=== PATIENT | male | born 1950 | race Caucasian/White ===

== ENCOUNTER 2020-01-11 07:01 | Inpatient (IN) | payer MEDICARE ==
[~2020-01-11] VITALS: Ht 162.6 cm; Wt 72.2 kg
[~2020-01-11 07:01] MED LIST: AMOX-367 PO; HYDR200T5 PO; INSU100V8 SQ; LABE100T6 PO; LISI40TA PO; LOVA20TA2 PO
[2020-01-11] MEDS ORDERED: DEXTROSE 50%, 50ML SYRINGE ONE (07:05)
[2020-01-11] MEDS ORDERED: SODIUM CHLORIDE 0.9% 1,000 ML IV ONE (07:15)
[2020-01-11] MEDS ORDERED: DEXTROSE 50%, 50ML SYRINGE IVPush ONE (07:30)
--- NOTE | 2020-01-11 07:35 | NUR ---
LATE NOTE: 2ND IV PLACED, LABS DRAWN WITH START/SENT TO LAB. FS GLUCOSE 154, CONTINUED Q15 MINUTES. DTR AT BS, CALL LIGHT WITHIN REACH.
[2020-01-11 07:45] LABS: BASOPHILS # (AUTO) 0.04 x10^3/uL (0-0.1); BASOPHILS % (AUTO) 0 % (0-1); EOSINOPHILS # (AUTO) 0.11 x10^3/uL (0-0.4); EOSINOPHILS % (AUTO) 1 % (1-7); LYMPHOCYTES # (AUTO) 1.23 x10^3/uL (1-3.4); LYMPHOCYTES % (AUTO) 13 % (22-44); MD NO; MEAN CORPUSCULAR HEMOGLOBIN 31.4 pg (27.5-34.5); MEAN CORPUSCULAR HGB CONC 32.5 g/dL (33.2-36.2); MEAN PLATELET VOLUME 8.1 fL (7.4-10.4); MONOCYTES # (AUTO) 0.46 x10^3/uL (0.2-0.8); MONOCYTES % (AUTO) 5 % (2-9); NEUTROPHILS # (AUTO) 7.48 x10^3/uL (1.8-6.8); NEUTROPHILS % (AUTO) 80 % (42-75); PLATELET COUNT 255 x10^3/uL (130-400); RED CELL DISTRIBUTION WIDTH 14.5 % (9.4-14.8)
[2020-01-11 07:58] LABS: ALANINE AMINOTRANSFERASE 37 U/L (12-78); ALBUMIN 3.8 g/dL (3.4-5.0); ANION GAP 6 mmol/L (5-15); CALCIUM 8.5 mg/dL (8.5-10.1); CHLORIDE 111 mmol/L (98-107)
[2020-01-11 08:01] LABS: ALKALINE PHOSPHATASE 88 U/L (45-117); BILIRUBIN,TOTAL 0.2 mg/dL (0.2-1.0); CREATININE 1.84 mg/dL (0.7-1.3); TOTAL PROTEIN 7.3 g/dL (6.4-8.2)
--- NOTE | 2020-01-11 08:28 | NUR ---
PER PT AND DTR, PT BACK TO "NORMAL" MENTAL STATUS. A/O X 4. PT STATES HE NOTICES BLOOD SUGAR SEEMS LOW EVERY MORNING AND EATS A FEW POPSICLES TO BRING IT UP. ERP NOTIFIED. MEDS ENTERED INTO MED REC.
--- NOTE | 2020-01-11 09:14 | NUR ---
FS 106, BREAKFAST TRAY PROVIDED. ALL QUESTIONS ANSWERED FROM PT AND . VSS/UPDATED IN COMPUTER.
[2020-01-11 11:26] VITALS: BP 195/71
[2020-01-11 12:00] VITALS: BP 184/72
[2020-01-11] MEDS ORDERED: METOCLOPRAMIDE 5 MG/ML, 2ML IVPush PRN (12:30)
[2020-01-11] MEDS ORDERED: DEXTROSE 4 GM TAB.CHEW PO PRN (12:30)
[2020-01-11] MEDS ORDERED: DOCUSATE 100 MG CAPSULE PO PRN (12:30)
[2020-01-11] MEDS ORDERED: BISACODYL 10 MG SUPP PR PRN (12:30)
[2020-01-11] MEDS ORDERED: ONDANSETRON 2MG/ML, 2ML IVPush PRN (12:30)
[2020-01-11] MEDS ORDERED: ACETAMINOPHEN 325 MG TABLET PO PRN (12:30)
[2020-01-11] MEDS ORDERED: ONDANSETRON ODT 4 MG PO PRN (12:30)
[2020-01-11] MEDS ORDERED: MELATONIN 5 MG TABLET PO PRN (12:30)
[2020-01-11] MEDS ORDERED: GLUCAGON 1 MG IM PRN (12:30)
[2020-01-11] MEDS ORDERED: DEXTROSE 50%, 50ML SYRINGE IVPush PRN (12:30)
[2020-01-11 12:37] VITALS: BP 184/72
[2020-01-11] MEDS ORDERED: LISINOPRIL 40 MG TABLET PO SCH (13:04)
[2020-01-11] MEDS ORDERED: LABETALOL 300 MG TABLET PO SCH (13:04)
[2020-01-11] MEDS ORDERED: LABETALOL 100 MG TABLET ONE (13:08)
[2020-01-11] MEDS ORDERED: ALBUMIN HUMAN 25% 100 ML IV ONE (13:30)
[2020-01-11] MEDS: AMLODIPINE 5 MG TABLET PO SCH ×2 (13:35→20:57)
[2020-01-11 14:17] LABS: TROPONIN I < 0.015 ng/mL (0.000-0.045)
[2020-01-11] MEDS: SODIUM CHLORIDE 0.9% 1,000 ML IV SCH (15:14)
[2020-01-11 15:55] LABS: MICROSCOPIC AUTO
[2020-01-11] MEDS ORDERED: INSULIN LISPRO 100 UNITS/ML, PEN SQ-INSULIN SCH (16:00)
[2020-01-11 16:32] VITALS: BP 174/90
[2020-01-11] MEDS: INSULIN LISPRO 100 UNITS/ML, PEN SQ-INSULIN SCH ×2 (17:01→20:58)
[2020-01-11] MEDS ORDERED: LABETALOL 100 MG TABLET PO SCH (18:00)
[2020-01-11 18:43] VITALS: BP 129/60
[2020-01-11 19:28] LABS: TROPONIN I < 0.015 ng/mL (0.000-0.045)
[2020-01-11] MEDS: LOVASTATIN 20 MG TABLET PO SCH (20:57)
[2020-01-11] MEDS: SODIUM CHLORIDE FLUSH 10ML SYR IVF SCH (21:00)
[2020-01-12 01:07] VITALS: BP 135/67
[2020-01-12] MEDS: SODIUM CHLORIDE 0.9% 1,000 ML IV SCH (02:50)
[2020-01-12 06:16] LABS: CHLORIDE 113 mmol/L (98-107)
[2020-01-12 06:25] LABS: ALANINE AMINOTRANSFERASE 29 U/L (12-78); ALBUMIN 3.6 g/dL (3.4-5.0); ALKALINE PHOSPHATASE 69 U/L (45-117); ANION GAP 8 mmol/L (5-15); BILIRUBIN,TOTAL 0.6 mg/dL (0.2-1.0); CALCIUM 8.2 mg/dL (8.5-10.1); CREATININE 1.56 mg/dL (0.7-1.3); TOTAL PROTEIN 6.9 g/dL (6.4-8.2)
[2020-01-12 06:33] LABS: BASOPHILS # (AUTO) 0.03 x10^3/uL (0-0.1); BASOPHILS % (AUTO) 1 % (0-1); EOSINOPHILS # (AUTO) 0.07 x10^3/uL (0-0.4); EOSINOPHILS % (AUTO) 1 % (1-7); LYMPHOCYTES # (AUTO) 1.61 x10^3/uL (1-3.4); LYMPHOCYTES % (AUTO) 25 % (22-44); MD NO; MEAN CORPUSCULAR HEMOGLOBIN 31.6 pg (27.5-34.5); MEAN CORPUSCULAR HGB CONC 32.7 g/dL (33.2-36.2); MEAN PLATELET VOLUME 8.4 fL (7.4-10.4); MONOCYTES # (AUTO) 0.57 x10^3/uL (0.2-0.8); MONOCYTES % (AUTO) 9 % (2-9); NEUTROPHILS # (AUTO) 4.09 x10^3/uL (1.8-6.8); NEUTROPHILS % (AUTO) 64 % (42-75); PLATELET COUNT 264 x10^3/uL (130-400); RED CELL DISTRIBUTION WIDTH 14.4 % (9.4-14.8)
[2020-01-12] MEDS: INSULIN LISPRO 100 UNITS/ML, PEN SQ-INSULIN SCH ×4 (07:00→20:34)
[2020-01-12 08:57] VITALS: BP 169/77
[2020-01-12] MEDS: AMLODIPINE 5 MG TABLET PO SCH ×2 (09:09→20:33)
[2020-01-12] MEDS: SODIUM CHLORIDE FLUSH 10ML SYR IVF SCH ×2 (09:10→20:37)
[2020-01-12 12:03] VITALS: BP 151/68
[2020-01-12] MEDS: LOVASTATIN 20 MG TABLET PO SCH (20:33)
[2020-01-12 20:41] VITALS: BP 165/69
[2020-01-13 01:18] VITALS: BP 150/89
[2020-01-13 05:10] LABS: BASOPHILS # (AUTO) 0.03 x10^3/uL (0-0.1); BASOPHILS % (AUTO) 0 % (0-1); EOSINOPHILS % (AUTO) 1 % (1-7); LYMPHOCYTES # (AUTO) 1.53 x10^3/uL (1-3.4); LYMPHOCYTES % (AUTO) 20 % (22-44); MD NO; MEAN CORPUSCULAR HEMOGLOBIN 31.8 pg (27.5-34.5); MEAN CORPUSCULAR HGB CONC 33.4 g/dL (33.2-36.2); MEAN PLATELET VOLUME 8.4 fL (7.4-10.4); MONOCYTES % (AUTO) 10 % (2-9); NEUTROPHILS # (AUTO) 5.27 x10^3/uL (1.8-6.8); NEUTROPHILS % (AUTO) 68 % (42-75); PLATELET COUNT 248 x10^3/uL (130-400); RED BLOOD COUNT 3.38 x10^6/uL (4.38-5.82); RED CELL DISTRIBUTION WIDTH 14.4 % (9.4-14.8)
[2020-01-13 05:15] LABS: CALCIUM 8.3 mg/dL (8.5-10.1); CHLORIDE 111 mmol/L (98-107)
[2020-01-13 05:18] LABS: ANION GAP 8 mmol/L (5-15); CREATININE 1.53 mg/dL (0.7-1.3)
[2020-01-13] MEDS ORDERED: LACTATED RINGERS 1,000 ML IV SCH (06:30)
[2020-01-13] MEDS: INSULIN LISPRO 100 UNITS/ML, PEN SQ-INSULIN SCH ×2 (07:20→11:09)
[2020-01-13] MEDS: SODIUM CHLORIDE FLUSH 10ML SYR IVF SCH (08:07)
[2020-01-13] MEDS: AMLODIPINE 5 MG TABLET PO SCH (08:07)
[2020-01-13 08:50] VITALS: BP 171/67
[2020-01-13] MEDS ORDERED: LISINOPRIL 20 MG TABLET PO SCH (09:00)
[2020-01-13] MEDS ORDERED: INSU100I11 SQ-INSULIN (09:01)
[2020-01-13] MEDS ORDERED: AMLO-150 PO (09:01)
[2020-01-13] MEDS ORDERED: INSU100I13 SQ-INSULIN (09:01)
[2020-01-13] MEDS ORDERED: HYDR-3343 PO (09:01)
[2020-01-13 10:44] VITALS: BP 167/67
[2020-01-13 12:14] VITALS: BP 159/77
[2020-01-13] MEDS ORDERED: INSULIN GLARGINE 100 UNITS/ML, PEN SQ-INSULIN SCH (21:00)
== END 2020-01-13 13:30 | disposition home or self-care (01) | DRG 637 ==
LOC: ED 08:39 → EDIP 10:01 → 4EST 11:21 → DCLOUNGE 01-13 12:20
PROVIDERS: ADMIT Family Medicine; ATTEND Internal Medicine
DX: E11.649 Type 2 diabetes mellitus with hypoglycemia without coma (principal); G93.41 Metabolic encephalopathy; J98.11 Atelectasis; T38.3X5A Adverse effect of insulin and oral hypoglycemic [antidiabetic] drugs, initial encounter; D64.9 Anemia, unspecified; E11.22 Type 2 diabetes mellitus with diabetic chronic kidney disease; E78.5 Hyperlipidemia, unspecified; I12.9 Hypertensive chronic kidney disease with stage 1 through stage 4 chronic kidney disease, or unspecified chronic kidney disease; Z79.4 Long term (current) use of insulin; Z79.899 Other long term (current) drug therapy; Z83.3 Family history of diabetes mellitus; N18.9 Chronic kidney disease, unspecified; Z86.19 Personal history of other infectious and parasitic diseases; Z87.01 Personal history of pneumonia (recurrent); Z87.891 Personal history of nicotine dependence; N17.0 Acute kidney failure with tubular necrosis
CPT/HCPCS: 36415; 71045; 80048; 80053; 81001; 82962; 83036; 83735; 84100; 84439; 84443; 84484; 85025; 93005; 96374; 99291; G0378; P9047; J1815; J7030; J7120